=== PATIENT | male | born 1995 | race Two or more races ===

== ENCOUNTER 2020-08-23 18:28 | Emergency (ER) | payer OTHER, SELFPAY ==
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
[2020-08-23 19:01] VITALS: BP 142/82; PULSE 75; RESP 16; TEMP 37.1; O2SAT 100
[2020-08-23 20:20] VITALS: BP 117/75; PULSE 62; RESP 14; TEMP 37.1; O2SAT 100
[2020-08-23 21:37] VITALS: BP 119/79; PULSE 65; RESP 16; O2SAT 100
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
== END 2020-08-23 23:44 | disposition home or self-care (01) ==
PROVIDERS: Emergency Provider Emergency Medicine
DX: F07.81 Postconcussional syndrome (principal); R51.9 Headache, unspecified; R42 Dizziness and giddiness; Y04.0XXA Assault by unarmed brawl or fight, initial encounter
CPT/HCPCS: 70450; 99284

== ENCOUNTER 2023-04-16 10:24 | Emergency (ER) | payer OTHER, SELFPAY ==
[2023-04-16 10:38] VITALS: BP 132/82; PULSE 103; RESP 16; TEMP 37.2; O2SAT 98
--- NOTE | 2023-04-16 11:38 | ED.URI ---
HPI - URI/Sore Throat General Chief Complaint: Upper Respiratory Infection Stated Complaint: runny nose,weakness,chest congestion Time Seen by Provider: 04/16/23 10:45 Source: patient Mode of arrival: ambulatory Limitations: no limitations History of Present Illness HPI Narrative: Helen is a 27-year-old male patient presenting to the clinic today with complaints of runny nose, sore throat, cough, chest congestion, and weakness x2 days. He reports he did feel feverish but has not checked his temperature. Denies any shortness of breath or chest pain. MD elicited complaint: sore throat and nasal congestion Related Data Home Medications Medication Instructions Recorded Confirmed No Home Medications 04/16/23 04/16/23 Allergies Allergy/AdvReac Type Severity Reaction Status Date / Time No Known Allergies Allergy Verified 04/16/23 11:21 Review of Systems Review of Systems: Pertinent positives per HPI. Patient denies any fever, chills, rash, headache, visual changes, dizziness, cough, shortness of breath, chest pain, palpitations, nausea, vomiting, diarrhea, constipation, abdominal pain, or any urinary issues. PMFSH Comments At the time of my signature, I reviewed and agree with the nursing past medical, surgical, social, and family history. There is no relevant family history pertinent to the patient complaint. Exam Narrative: General: Well-developed, well nourished, in no apparent distress Head: Normocephalic, atraumatic Eyes: Pupils equally round and reactive to light bilaterally, EOM intact, sclera and conjunctive clear, no discharge, lids normal Ears: TMs intact and congested, ear canals clear, no drainage, grossly hearing normal. Nose: Nares patent, clear discharge, no inflammation, no sinus tenderness. Mouth: Oral pharynx red without lesions or masses, good dentition, MMM. Neck: Supple, trachea midline, no enlargement of anterior or posterior cervical nodes, no thyroid masses or goiter palpable. Cardio: Regular rate and rhythm, s1 and s2 normal, no murmur appreciated. Resp: Clear to auscultation bilaterally, no rhonchi, rales, wheezing or rubs Course Course Emergency Course: Portions of this record may have been created with voice recognition software. Level of Care: Express Care Visit Vital Signs Vital signs: Vital Signs Temperature 37.2 C 04/16/23 10:38 Pulse Rate 103 H 04/16/23 10:38 Respiratory Rate 16 04/16/23 10:38 Blood Pressure 132/82 04/16/23 10:38 Pulse Oximetry 98 04/16/23 10:38 Oxygen Delivery Room Air 04/16/23 10:38 Temperature 37.2 C 04/16/23 10:38 Pulse Rate 103 H 04/16/23 10:38 Respiratory Rate 16 04/16/23 10:38 Blood Pressure 132/82 04/16/23 10:38 Pulse Oximetry 98 04/16/23 10:38 Oxygen Delivery Room Air 04/16/23 10:38 Vital signs reviewed MDM - URI/Sore Throat MDM Narrative Medical decision making narrative: At the time of visit patient is resting comfortably on the exam table. Patient appears to be nontoxic. Labs: COVID, influenza, and strep test were all negative in the clinic today. We will send strep for culture. Plan: I suspect patient has URI/pharyngitis/viral syndrome. Supportive measures were discussed with the patient and they voiced understanding discharge instructions and agrees to treatment plan. Return precautions reviewed Differential Diagnosis Differential diagnosis: Likely upper respiratory infection, otitis media, sinusitis, viral infection, bronchitis, influenza, pharyngitis and other (COVID) Discharge Plan Discharge Clinical Impression: Upper respiratory infection, Viral infection, Pharyngitis Patient Disposition: Home, Self-Care Condition: Stable Instructions: Antibiotic Form, Pharyngitis (ED), Upper Respiratory Infection (ED), Viral Syndrome (ED) Additional Instructions: COVID, influenza, and strep test were all negative in the clinic today. We will send strep for culture and
== END 2023-04-16 11:50 | disposition home or self-care (01) ==
PROVIDERS: Emergency Provider Nurse Practitioner Family
DX: J06.9 Acute upper respiratory infection, unspecified (principal); B34.9 Viral infection, unspecified; J02.9 Acute pharyngitis, unspecified; Z20.822 Contact with and (suspected) exposure to COVID-19; Z86.16 Personal history of COVID-19
CPT/HCPCS: 87081; 87426; 87804; 87880; 99213; G0463